=== PATIENT | female | born 1975 | race American Indian/Alaskan Native ===

== ENCOUNTER 2019-09-18 08:26 | Observation (INO) | payer MEDICAID ==
--- NOTE | 2019-09-16 12:26 | Anesthesia Consultation ---
Anesthesia Consult and Med Hx Date of service: 09/16/19 - Airway Anesthetic Teeth Evaluation: Good ROM Head & Neck: Adequate Mental/Hyoid Distance: Adequate Mallampati Class: Class II Intubation Access Assessment: Probably Good - Pre-Operative Health Status ASA Pre-Surgery Classification: ASA2 Proposed Anesthetic Plan: General Nerve Block: TAP - Central Nervous System Hx Psychiatric Problems: Yes (anxiety, sleep disorder) - Hematic Hx Anemia: Yes (excessive uterine bleeding, has Iron transfusions) - Other Systems Hx Alcohol Use: Yes (socially)
[2019-09-16 12:30] LABS: Hematocrit 24.7 % (30.3-42.9); Hemoglobin 7.1 gm/dl (10.1-14.3); Red Blood Count 3.97 M/mm3 (3.65-5.03)
[2019-09-16 12:31] LABS: Mean Corpuscular HGB Conc 29 % (30-34); Mean Corpuscular Volume 62 fl (79-97); Platelet Count 222 K/mm3 (140-440); Red Cell Distribution Width 18.8 % (13.2-15.2)
[2019-09-16 13:01] LABS: Basophils % (Manual) 0 % (0.0-1.8); Eosinophils % (Manual) 0 % (0.0-4.3); Hypochromasia 2+; Total Cells Counted 100
[2019-09-16 13:02] LABS: Anisocytosis 2+; Ovalocytes 1+; Platelet Estimate Consistent w Auto
--- NOTE | 2019-09-17 12:28 | History and Physical Report ---
History of Present Illness Date of examination: 09/17/19 Date of admission: 09/18/2019 Chief complaint: DUB and anemia History of present illness: 44y/o with dysfunctional uterine bleeding and subsequent anemia. The patient's most recent hemoglobin was 7. She reports fatigue and malaise secondary to her anemia. Ultrasound demonstrates an enlarged uterus likely consistent with adenomyosis. Past History Past Medical History: other (uterine fibroids) Past Surgical History: D&C, other (tubal ligation) Social history: - Obstetrical History : 3 Para: 2 Hx # Term Pregnancies: 2 Number of Pregnancies: 0 Spontaneous Abortions: 1 Induced : 0 Number of Living Children: 2 Medications and Allergies Allergies Allergy/AdvReac Type Severity Reaction Status Date / Time No Known Allergies Allergy Verified 09/16/19 11:30 Home Medications Medication Instructions Recorded Confirmed Last Taken Type Fexofenadine HCl [Yue Allergy] 180 mg PO QDAY 09/16/19 09/16/19 Unknown History hydrOXYzine HCL [Atarax] 10 mg PO QHS PRN 09/16/19 09/16/19 Unknown History Active Meds: Active Medications Celecoxib (Celebrex) 200 mg PO PREOP NR Stop: 09/18/19 23:59 Fentanyl (Sublimaze) 100 mcg IV ONCE ONE Stop: 09/18/19 07:01 Fentanyl (Sublimaze) 100 mcg IV ONCE PRN PRN Reason: sedation for nerve block Stop: 09/18/19 13:00 Gabapentin (Gabapentin) 600 mg PO PREOP NR Stop: 09/18/19 23:59 Lactated Ringer's (Lactated Ringers) 1,000 mls @ 100 mls/hr IV DIRECT SHAJI Cefazolin Sodium (Ancef/Sterile Water 2 Gm/20 Ml) 2 gm in 20 mls @ 80 mls/hr IV PREOP NR; Protocol Stop: 09/17/19 20:00 Sodium Chloride (Nacl 0.9% 500 Ml) 500 mls @ 0 mls/hr IV ONCE NR Stop: 09/17/19 14:00 Midazolam HCl (Versed) 2 mg IV PREOP NR Stop: 09/18/19 23:59 Scopolamine (Transderm-Scop) 1 each TD PREOP NR Stop: 09/18/19 23:59 Review of Systems All systems: negative Constitutional: fatigue, weakness, malaise Genitourinary: vaginal bleeding - Vital Signs Vital signs: Vital Signs Temp Pulse Resp BP Pulse Ox 98.4 F 72 18 129/82 100 09/16/19 12:05 09/16/19 12:05 09/16/19 12:05 09/16/19 12:05 09/16/19 12:05 Temp Pulse Resp BP Pulse Ox 98.4 F 72 18 129/82 100 09/16/19 12:05 09/16/19 12:05 09/16/19 12:05 09/16/19 12:05 09/16/19 12:05 - Physical Exam Breasts: Positive: deferred Cardiovascular: Regular rate Lungs: Positive: Clear to auscultation Abdomen: Positive: normal appearance Results Result Diagrams: 09/16/19 12:06 Abnormal lab results 09/16/19 Range/Units 12:06 WBC 2.0 L (4.5-11.0) K/mm3 Hgb 7.1 L (10.1-14.3) gm/dl Hct 24.7 L (30.3-42.9) % MCV 62 L (79-97) fl MCH 18 L (28-32) pg MCHC 29 L (30-34) % RDW 18.8 H (13.2-15.2) % Seg Neuts % (Manual) 39.0 L (40.0-70.0) % Lymphocytes % (Manual) 50.0 H (13.4-35.0) % Monocytes % (Manual) 11.0 H (0.0-7.3) % Seg Neutrophils # Man 0.8 L (1.8-7.7) K/mm3 Lymphocytes # (Manual) 1.0 L (1.2-5.4) K/mm3 All other labs normal. Assessment and Plan - Patient Problems (1) Dysfunctional uterine bleeding Status: Acute Plan to address problem: scheduled for robotic hysterectomy (2) Chronic blood loss anemia Status: Acute (3) Adenomyosis Status: Acute
[~2019-09-18 08:26] MED LIST: BUPIVACAINE/PF (0.5%) 5 MG/1 ML 10 ML VIAL INFILTRATI NR; CELECOXIB 200 MG CAP PO NR; FAMOTIDINE 20 MG/2 ML INJ IV NR; GABAPENTIN 300 MG CAP PO NR; LACTATED RINGERS 1,000 ML IV SCH; LIDOCAINE (1%) 10 MG/1 ML VIAL 20 ML MDV INFILTRATI NR; MIDAZOLAM 2 MG/2 ML INJ IV NR; SCOPOLAMINE TRANSDERMAL PATCH 72 HR TD NR; SODIUM CHLORIDE 0.9% 500 ML 500 ML IV NR; SODIUM CHLORIDE 0.9% P/F 10 ML VIAL INFILTRATI NR; ceFAZolin/Water 2 GM/20 ML 2 GM/20 ML SYRINGE IV NR; fentaNYL 100 MCG/2 ML INJ IV ONE; fentaNYL 100 MCG/2 ML INJ IV PRN
--- NOTE | 2019-09-18 09:23 | Anesthesia Day of Surgery ---
Anesthesia Day of Surgery - Day of Surgery Patient Examined: Yes Patient H&P Reviewed: Yes Patient is NPO: Yes
[2019-09-18] MEDS ORDERED: HYDROmorphone 1 MG/1 ML INJ IV PRN ×2 (09:30→16:17)
[2019-09-18] MEDS ORDERED: ceFAZolin/Water 2 GM/20 ML 2 GM/20 ML SYRINGE IV ONE (09:35)
[2019-09-18] MEDS ORDERED: ceFAZolin/Water 2 GM/20 ML 2 GM/20 ML SYRINGE IV NR (10:00)
[2019-09-18] MEDS ORDERED: SODIUM CHLORIDE 0.9% P/F 10 ML VIAL INFILTRATI NR (10:15)
[2019-09-18] MEDS ORDERED: SODIUM CHLORIDE 0.9% 500 ML 500 ML IV NR (10:30)
[2019-09-18] MEDS ORDERED: BUPIVACAINE-EPINEPHRINE/PF 0.25%-1:200,000 (30 ML) VIAL INFILTRATI ONE (13:01)
[2019-09-18] MEDS ORDERED: ONDANSETRON 4 MG/2 ML INJ ONE (13:53)
[2019-09-18] MEDS ORDERED: ROCURONIUM 50 MG/5 ML INJ IV ONE (13:53)
[2019-09-18] MEDS ORDERED: LIDOCAINE MPF (2%) 20 MG/1 ML VIAL 5 ML ONE (13:53)
[2019-09-18] MEDS ORDERED: HYDROmorphone 1 MG/1 ML INJ ONE ×2 (13:53→16:16)
[2019-09-18] MEDS ORDERED: propofoL 200 MG/20 ML VIAL IV ONE (13:53)
[2019-09-18] MEDS ORDERED: NEOMY 40 MG/POLYMYXIN B 200,000 UNITS/ML (GU) AMPULE IR ONE ×2 (14:12→15:10)
[2019-09-18] MEDS ORDERED: LACTATED RINGERS 1,000 ML ONE (14:59)
[2019-09-18] MEDS ORDERED: dexAMETHasone 20 MG/5 ML VIAL ONE (15:06)
[2019-09-18] MEDS ORDERED: GLYCOPYRROLATE 0.4 MG/2 ML INJ ONE (15:09)
[2019-09-18] MEDS ORDERED: NEOSTIGMINE 10MG/10 ML INJ MDV ONE (15:09)
[2019-09-18] MEDS ORDERED: MORPHINE 4 MG/1 ML INJ IV PRN (15:25)
[2019-09-18] MEDS ORDERED: ZOLPIDEM 5 MG TAB PO PRN (15:25)
[2019-09-18] MEDS ORDERED: oxyCODONE /ACETAMINOPHEN 5-325MG TAB PO PRN (15:25)
--- NOTE | 2019-09-18 15:30 | Operative Report ---
Operative Report Operative Report: Date of surgery: September 18, 2019 Preoperative diagnoses: Dysfunctional uterine bleeding; iron deficiency anemia Postoperative diagnoses: Same as above Procedure: Robotic hysterectomy; bilateral salpingectomy Surgeon: Marilee Combs M.D. Card Filer: Luly Aguayo Anesthesia: Gen. endotracheal anesthesia Estimated blood loss: 50 mL Pathology: Uterus, cervix, bilateral tubes Indication: 44-year-old -0-1-2 with a history of dysfunctional uterine bleeding and menorrhagia. The patient's vaginal bleeding was so significant that it had contributed to her severe iron deficiency anemia. The patient was transfused 2 units packed red blood cells prior to surgery. Procedure: The patient was taken to the operating room and given general endotracheal anesthesia without complication. She is prepped and draped in a normal sterile fashion. A bivalve speculum was placed in the patient's vagina and a single- tooth tenaculum placed on the anterior lip of the cervix. The uterus was sounded with the uterine sound. A [employer] uterine manipulator was placed in the bivalve speculum was then removed. Attention was then turned to the patient's abdomen where a millimeter supra umbilical skin incision was then made. A Veress needle was placed and peritoneal entry was verified water-filled syringe. Insufflation of the peritoneal cavity was performed with CO2 gas. The 12 mm trocar was then placed under direct visualization. An additional 8 mm trocar was placed on the patient's left and right lateral side just opposite of the supraumbilical trocar. An additional 5 mm right lateral trocar was then placed as the accessory port. The patient was then placed in steep Trendelenburg. The da Jasbir robot was then engaged. General survey of the patient's abdomen and pelvis remit revealed a mildly enlarged uterus with normal ovaries bilaterally the tubes are also normal appearance with evidence of a prior tubal ligation. A fenestrated forcep was placed in arm 2 and a vessel sealer was placed in arm 1. The surgeon then transferred to the surgical console. The mesosalpinx was then isolated on the right. The vessel sealer was used to coagulate the mesosalpinx which was then transected. The tube was transected from the ovary. The tubo- ovarian ligament was then coagulated and transected. The round ligament was then coagulated and transected also. The vesicouterine peritoneum was then entered from the patient's right side. The uterine vessels were then coagulated with the vessel sealer. The vessels were then transected . Attention was then turned to the patient's left side where the tubo-ovarian ligament and mesosalpinx were again isolated coagulated and transected. The vesical peritoneum was then entered from the left and joined in the midline. Peritoneum was reflected off of the lower uterine segment. Uterine vessels were then coagulated and then transected. The blood supply to the uterus was adequately contained, a posterior colpotomy was made. The V care ring was visualized. Posterior colpotomy was created with the monopolar scissors. The incision was continued circumferentially until anterior colpotomy was made. The cervix and uterus were amputated from the vaginal cuff. The uterus was then removed along with the tubes bilaterally through the vagina and a warm laparotomy sponge was placed and maintain the pneumoperitoneum. The vaginal cuff was then closed in a running fashion with V lock suture. Irrigation of the pelvis was performed. Hemoblast was applied to the incision. The supraumbilical 12 mm trocar site was closed with the Gerald Bean device. The skin was then reapproximated with 4-0 Monocryl. The tissue was sent to pathology which included the cervix , fallopian tubes and uterus. The patient was then successfully extubated. She was then taken to the recovery room in stable condition. All sponge laps and needle counts were correct x2.
[2019-09-18] MEDS ORDERED: D5W/LACTATED RINGERS 1,000 ML IV SCH (16:00)
[2019-09-18] MEDS ORDERED: hydrALAZINE 20 MG/1 ML INJ ONE (16:44)
[2019-09-18] MEDS ORDERED: hydrALAZINE 20 MG/1 ML INJ IV ONE (16:53)
[2019-09-18] MEDS: KETOROLAC 30 MG/1 ML INJ IV SCH (21:31)
[2019-09-19] MEDS: IBUPROFEN 600 MG TAB PO SCH ×2 (01:07→15:21)
[2019-09-19 04:19] LABS: Hemoglobin 9.7 gm/dl (10.1-14.3)
[2019-09-19 04:20] LABS: Hematocrit 32.8 % (30.3-42.9)
[2019-09-19] MEDS: KETOROLAC 30 MG/1 ML INJ IV SCH (05:40)
--- NOTE | 2019-09-19 08:02 | Progress Note ---
Assessment and Plan - Patient Problems (1) Dysfunctional uterine bleeding Current Visit: No Status: Acute Plan to address problem: Patient doing well Discharge home after tolerating regular diet and voiding (2) Chronic blood loss anemia Current Visit: No Status: Acute (3) Adenomyosis Current Visit: No Status: Acute Subjective - Subjective Date of service: 09/19/19 Interval history: The patient is without complaints. She is tolerating clear diet without complication. Her pain is well controlled. Patient reports: appetite normal, pain well controlled Objective - Vital Signs Latest vital signs: Vital Signs Temp Pulse Pulse Resp BP Pulse Ox 09/19/19 06:10 18 09/19/19 05:40 18 09/19/19 05:39 99.0 F 79 18 133/76 98 09/19/19 00:12 100.0 F H 81 16 151/80 98 09/18/19 22:01 18 09/18/19 21:31 18 09/18/19 20:30 85 18 09/18/19 19:53 98.0 F 86 18 140/86 97 09/18/19 18:00 100.4 F H 84 18 132/78 96 09/18/19 17:30 82 151/86 99 09/18/19 17:15 84 0 L 155/91 100 09/18/19 17:00 87 18 163/95 100 09/18/19 16:46 77 183/100 09/18/19 16:45 99.8 F H 88 20 183/100 98 09/18/19 16:30 77 20 179/109 99 09/18/19 16:15 77 17 167/99 99 09/18/19 16:00 77 16 168/85 99 09/18/19 15:55 75 16 164/98 97 09/18/19 15:50 76 16 157/92 97 09/18/19 15:48 97.8 F 84 20 159/91 100 09/18/19 14:25 98.0 F 60 16 130/76 100 09/18/19 13:55 92 H 24 135/77 99 09/18/19 13:50 88 21 116/64 98 09/18/19 13:45 90 24 137/66 99 09/18/19 13:40 85 21 124/79 98 09/18/19 13:35 70 21 132/77 100 09/18/19 13:30 59 L 17 143/87 100 09/18/19 13:25 60 16 126/70 100 09/18/19 13:24 98.0 F 60 16 130/76 100 09/18/19 13:07 97.6 F 64 16 130/64 100 09/18/19 12:37 97.5 F L 64 15 132/65 99 09/18/19 12:20 98.5 F 70 19 146/83 98 09/18/19 12:07 97.3 F L 60 21 125/74 100 09/18/19 11:39 97.4 F L 66 18 141/80 99 09/18/19 11:37 97.4 F L 66 18 141/80 99 09/18/19 11:22 97.8 F 63 16 133/84 99 09/18/19 11:18 97.8 F 63 14 136/82 99 09/18/19 11:14 97.6 F 68 16 143/83 99 09/18/19 10:44 98.2 F 65 16 137/78 100 09/18/19 10:29 98.6 F 73 16 140/86 97 09/18/19 08:35 99.4 F 78 16 145/86 100 Intake and Output 09/18/19 09/19/19 09/19/19 22:59 06:59 14:59 Intake Total 400 720 Output Total 550 1999 Balance -150 -1280 Intake: IV 400 Intake, Free Water 720 Output: Urine 550 1999 Indwelling Catheter 1999 Other: Total, Output Amount 1000 Voiding Method Indwelling Catheter Indwelling Catheter - Exam Abdomen: Present: normal appearance - Labs Labs: Abnormal lab results 09/18/19 09/19/19 Range/Units 08:40 03:36 Hgb 9.7 L (10.1-14.3) gm/dl Crossmatch See Detail
--- NOTE | 2019-09-19 08:04 | Discharge Summary ---
Providers - Providers Date of Admission: 09/18/19 15:25 Date of discharge: 09/19/19 Attending physician: FIOR BRIONES Primary care physician: JAE GONZALEZ Hospitalization Reason for admission: other (Dysfunctional uterine bleeding) Procedure: other (Robotic hysterectomy and bilateral salpingectomy) Incision: normal Discharge diagnosis: other (Dysfunctional uterine bleeding and anemia) Hospital course: The patient was admitted the day of surgery and underwent a robotic hysterectomy and bilateral salpingectomy. Secondary to the patient's severe iron deficiency anemia she had to be transfused 2 units packed red blood cells prior to surgery. Her postoperative course was uneventful. See operative note for details. Condition at discharge: Good Disposition: DC- TO HOME OR SELFCARE - Discharge Diagnoses (1) Dysfunctional uterine bleeding Status: Acute (2) Chronic blood loss anemia Status: Acute (3) Adenomyosis Status: Acute Plan - Discharge Medications Prescriptions: Docusate Sodium [Colace] 100 mg PO BID PRN #60 capsule PRN Reason: Constipation Ferrous Sulfate [Feosol 325 MG tab] 325 mg PO QDAY #30 tablet Ibuprofen [Motrin] 800 mg PO Q8HR PRN #60 tablet PRN Reason: Pain, Mild (1-3) oxyCODONE /ACETAMINOPHEN [Percocet 5/325] 1 tab PO Q6HR PRN #30 tablet PRN Reason: Pain - Provider Discharge Summary Activity: no sex for 6 weeks, no heavy lifting 4 weeks, no strenuous exercise Diet: routine Instructions: routine Additional instructions: [] Smoking cessation referral if applicable(refer to patient education folder for contact #) [] Refer to [facility]'s [facility] Booklet Call your doctor immediately for: * Fever > 100.5 * Heavy vaginal bleeding ( >1 pad per hour) * Severe persistent headache * Shortness of breath * Reddened, hot, painful area to leg or breast * Drainage or odor from incision. * Keep incision clean and dry at all times and follow doctor's instructions regarding bathing/showering Schedule follow-up with Dr. Briones in 4 weeks - Follow up plan
[2019-09-19] MEDS ORDERED: SIMETHICONE 80 MG CHEW TAB PO PRN (12:42)
[2019-09-19 16:50] VITALS: BP 133/77
== END 2019-09-19 15:45 | disposition home or self-care (01) ==
LOC: OR 08:26 → OB 15:25
PROVIDERS: ADMIT Obstetrics & Gynecology; ATTEND Obstetrics & Gynecology
DX: N93.8 Other specified abnormal uterine and vaginal bleeding (principal); D64.9 Anemia, unspecified; N80.0 Endometriosis of uterus
CPT/HCPCS: 36415; 36430; 58552; 64450; 84703; 85007; 85014; 85018; 85025; 86850; 86900; 86901; 86920; 88307; 96372; 96374; G0378; J0360; J0690; J1100; J1170; J1885; J2250; J2405; J2704; J2710; J3010; J7040; J7120; J7121; P9016; S2900; 88302